=== PATIENT | female | born 1995 | race Caucasian/White ===

== ENCOUNTER 2018-05-25 12:45 | Emergency (ER) | payer OTHER ==
[~2018-05-25] VITALS: Ht 172.7 cm; Wt 88.0 kg
[~2018-05-25 12:45] MED LIST: AMOX50SU PO; CEPH250SUA PO; CETMENLOZ PO; DEXGUASY PO; DIPH12.5EL PO; FAMO20 PO; FERR325 PO; HYDHCL25 PO; IBUP400 PO; IBUP800 PO; Ibuprofen Ib200 MG PO; METF500 PO; NITR100CA PO; ONDA4 PO; ONDA4ODT MM; OSEL75CA PO; PENVK500 PO; PRED10 PO; PRED20 PO; PRED5 PO; TRAZ50 PO; Verotin-Gr Cap1 EACH PO
[2018-05-25] MEDS ORDERED: Microgestin1 EAC1 PO (13:11)
[2018-05-25 14:07] LABS: Influenza A Positive (NEGATIVE); Influenza B Negative (NEGATIVE)
== END 2018-05-25 14:32 | disposition home or self-care (01) ==
LOC: ER 12:45
PROVIDERS: Physician Assistant
DX: J10.1 Influenza due to other identified influenza virus with other respiratory manifestations (principal); Z79.899 Other long term (current) drug therapy
CPT/HCPCS: 87804; 99283

== ENCOUNTER 2020-11-27 08:20 | Day surgery (SDC) | payer OTHER ==
[~2020-11-27] VITALS: Ht 172.7 cm; Wt 110.0 kg
[~2020-11-27 08:20] MED LIST changes: +Microgestin1 EAC1 PO
--- NOTE | 2020-11-27 09:04 | NUR ---
11/27/20 0904 Uriah Pond CALL LIGHT WITHIN REACH
--- NOTE | 2020-11-27 10:43 | NUR ---
11/27/20 Hector2 Wanda Lopes PROCEDURE: RIGHT RADIUS, MIDSHAFT ORIF.
== END 2020-11-27 12:25 | disposition home or self-care (01) ==
LOC: ORSCSDS 08:20
PROVIDERS: Orthopaedic Surgery
PROC: 0PSH0ZZ Reposition Right Radius, Open Approach (ICD-10-PCS; principal; 2020-11-27 09:45)
DX: S52.301A Unspecified fracture of shaft of right radius, initial encounter for closed fracture (principal); J45.909 Unspecified asthma, uncomplicated; K21.9 Gastro-esophageal reflux disease without esophagitis; E66.9 Obesity, unspecified; Z68.36 Body mass index [BMI] 36.0-36.9, adult; Z79.899 Other long term (current) drug therapy
CPT/HCPCS: A9270; C1713; J0690; J1100; J1885; J2250; J2405; J2704; J3010; J7120

== ENCOUNTER 2022-05-10 09:43 | Emergency (ER) | payer OTHER ==
[~2022-05-10] VITALS: Ht 170.2 cm; Wt 99.8 kg
[2022-05-10 10:53] LABS: U Amphetamine Screen Not Detected; U Barbituate Screen Not Detected; U Benzodiazapine Screen Not Detected; U Buprenorphine Screen Not Detected; U Cannabinoids Screen DETECTED; U Cocaine Screen Not Detected; U Methadone Screen Not Detected; U Methamphetamine Screen Not Detected; U Opiates Screen Not Detected; U Oxycodone Screen Not Detected; U Phencyclidine Screen Not Detected; U Propoxyphene Screen Not Detected
[2022-05-10] MEDS ORDERED: ONDA4ODT MM (12:05)
== END 2022-05-10 12:05 | disposition home or self-care (01) ==
LOC: ER 09:43
PROVIDERS: Student in an Organized Health Care Education/Training Program
DX: E86.0 Dehydration (principal)
CPT/HCPCS: A9270; J1885; J7030

== ENCOUNTER → 2022-09-10 | Outpatient (CLI) | payer OTHER ==
[2022-09-10 11:24] LABS: BASOPHILS ABSOLUTE AUTO 0.04 K/mm3 (0.00-0.23); BASOPHILS PERCENT AUTO 1 % (0-2); EOSINOPHILS ABSOLUTE AUTO 0.14 K/mm3 (0.00-0.68); EOSINOPHILS PERCENT AUTO 2 % (0-6); Hematocrit 39.4 % (33.0-51.0); Hemoglobin 13.2 g/dL (11.5-16.0); IMMATURE GRAN ABSOLUTE AUTO 0.03 K/mm3 (0.00-0.10); IMMATURE GRAN PERCENT AUTO 0 % (0-1); LYMPHOCYTES PERCENT AUTO 23 % (21-46); MONOCYTES ABSOLUTE AUTO 0.45 K/mm3 (0.16-1.47); MONOCYTES PERCENT AUTO 5 % (4-13); Mean Corpuscular HGB 29.7 pg (26.0-34.0); Mean Corpuscular HGB Conc 33.5 g/dL (31.5-36.5); Mean Corpuscular Volume 89 fL (80-100); Mean Platelet Volume 9.6 fL (9.1-12.4); NEUTROPHILS ABSOLUTE AUTO 5.85 K/mm3 (1.96-9.15); NEUTROPHILS PERCENT AUTO 69 % (41-73); Platelet Count 346 K/mm3 (150-400); RDW Coefficient Variation 13.2 % (11.7-14.2); Red Blood Cell Count 4.44 M/mm3 (3.80-5.20); White Blood Cell Count 8.41 K/mm3 (4.00-11.30)
[2022-09-10 11:41] LABS: Bun/Creatinine Ratio 21.9 (12.0-20.0); Calcium, Blood 8.9 mg/dL (8.5-10.1); Creatinine, Blood 0.73 mg/dL (0.40-1.00); Potassium, Blood 3.9 mmol/L (3.5-5.5); Thyroid Stimulating Hormone 1.42 uIU/mL (0.360-4.800)
== END ==
LOC: LAB 11:12 → LAB SHORT 11:12
PROVIDERS: Physician Assistant Medical
DX: N93.9 Abnormal uterine and vaginal bleeding, unspecified (principal); Z83.49 Family history of other endocrine, nutritional and metabolic diseases
CPT/HCPCS: 80048; 84443; 84702; 85025

== ENCOUNTER 2022-12-25 11:47 | Day surgery (SDC) | payer OTHER ==
[~2022-12-25] VITALS: Ht 175.3 cm; Wt 106.2 kg
--- NOTE | 2022-12-25 12:38 | NUR ---
12/25/22 1238 MAYTE ALCANTARA CALL LIGHT IN PLACE, ALL QUESTIONS ASKED AND ANSWERED. PT READY FOR OR
[2022-12-25 14:32] VITALS: BP 135/84
--- NOTE | 2022-12-25 14:33 | NUR ---
12/25/22 1430 Maria Antonia Martinez PT WAS UP TO RESTROOM AND VOIDED.
== END 2022-12-25 14:52 | disposition home or self-care (01) ==
LOC: ORSCSDS 11:47
PROVIDERS: Obstetrics & Gynecology
PROC: 0UT74ZZ Resection of Bilateral Fallopian Tubes, Percutaneous Endoscopic Approach (ICD-10-PCS; principal; 2022-12-25 13:15)
DX: Z30.2 Encounter for sterilization (principal); E66.01 Morbid (severe) obesity due to excess calories; Z68.41 Body mass index [BMI] 40.0-44.9, adult; Z79.899 Other long term (current) drug therapy
CPT/HCPCS: 88302; A9270; J1100; J2250; J2405; J2704; J3010

== ENCOUNTER 2023-04-10 10:16 | Day surgery (SDC) | payer OTHER ==
[~2023-04-10] VITALS: Ht 175.3 cm; Wt 102.5 kg
[~2023-04-10 10:16] MED LIST changes: +Lactated Ringer's 1,000 ML IV ONE; +Norco 5-325 Ta1 EACH PO; +propofoL 50 ML IV ONE
[2023-04-10] MEDS ORDERED: ONDA4 (10:37)
[2023-04-10] MEDS ORDERED: Lactated Ringer's 1,000 ML IV ONE (10:45)
[2023-04-10] MEDS ORDERED: Midazolam HCL 1 MG/ML 5MLVIAL ONE (11:00)
[2023-04-10 12:28] VITALS: BP 141/91
== END 2023-04-10 12:04 | disposition home or self-care (01) ==
LOC: ORSCSDS 10:16
PROVIDERS: Specialist
PROC: 0DB68ZX Excision of Stomach, Via Natural or Artificial Opening Endoscopic, Diagnostic (ICD-10-PCS; principal; 2023-04-10 11:30)
PROC: 0DJD8ZZ Inspection of Lower Intestinal Tract, Via Natural or Artificial Opening Endoscopic (ICD-10-PCS; 2023-04-10 11:30)
DX: R10.84 Generalized abdominal pain (principal); Z87.19 Personal history of other diseases of the digestive system; K29.70 Gastritis, unspecified, without bleeding; K64.8 Other hemorrhoids; K21.9 Gastro-esophageal reflux disease without esophagitis; R93.3 Abnormal findings on diagnostic imaging of other parts of digestive tract; Z79.899 Other long term (current) drug therapy
CPT/HCPCS: 88305; 88342; J2250; J2704; J7120

== ENCOUNTER → 2024-03-18 | Outpatient (CLI) | payer OTHER ==
[~2024-03-18] MED LIST changes: -Lactated Ringer's 1,000 ML IV ONE; +ONDA4; -propofoL 50 ML IV ONE
== END ==
LOC: LAB 15:59 → LAB SHORT 15:59
PROVIDERS: Obstetrics & Gynecology
DX: Z01.419 Encounter for gynecological examination (general) (routine) without abnormal findings (principal)
CPT/HCPCS: G0123

== ENCOUNTER 2024-06-10 09:45 | Day surgery (SDC) | payer OTHER ==
[~2024-06-10] VITALS: Ht 172.7 cm; Wt 109.4 kg
[~2024-06-10 09:45] MED LIST changes: +AMOX500 PO; +METO10 PO
[2024-06-10] MEDS ORDERED: LevonorgestreL 1 EACH IUD VAG SCH (10:25)
[2024-06-10] MEDS ORDERED: Lactated Ringer's 1,000 ML IV ONE (10:34)
[2024-06-10] MEDS ORDERED: Midazolam HCl 1MG / ML 2ML Vial ONE (11:05)
[2024-06-10] MEDS ORDERED: propofoL 20 ML IV ONE (11:05)
[2024-06-10] MEDS ORDERED: Sugammadex Sodium 200 MG/2ML SDV (100 MG/ML) ONE (11:05)
[2024-06-10] MEDS ORDERED: FentaNYL Citrate 50 MCG/ML 2 ML Injection ONE (11:05)
[2024-06-10] MEDS ORDERED: Rocuronium Bromide 10 MG/ML 5ML Injection IV ONE (11:08)
[2024-06-10] MEDS ORDERED: Dexamethasone Sod Phos 10 MG/ML 1ML VIAL ONE (12:27)
[2024-06-10] MEDS ORDERED: Ondansetron HCl 2 MG / ML 2ML Vial ONE (12:27)
[2024-06-10] MEDS ORDERED: Bupivacaine 0.5% HCl 5 MG/ML 30MLVIAL INJ ONE (12:36)
--- NOTE | 2024-06-10 12:37 | NUR ---
06/10/24 1237 Laura Lemon RN PREPPED GUME AREA TO THIGHS, PHYLLIS CERRATO PREPPED ABDOMEN
--- NOTE | 2024-06-10 13:50 | NUR ---
06/10/24 1350 Kenya Bales PT PLACED ON BED HICKS IN PACU, PT REQUESTING TO GO TO BATHROOM
[2024-06-10 14:17] VITALS: BP 127/70
== END 2024-06-10 14:39 | disposition home or self-care (01) ==
LOC: ORSCSDS 09:45
PROVIDERS: Obstetrics & Gynecology
PROC: 0UH97HZ Insertion of Contraceptive Device into Uterus, Via Natural or Artificial Opening (ICD-10-PCS; principal; 2024-06-10 11:15)
PROC: 0UBF4ZX Excision of Cul-de-sac, Percutaneous Endoscopic Approach, Diagnostic (ICD-10-PCS; principal; 2024-06-10 11:15)
DX: N80.399 Endometriosis of the pelvic peritoneum, other specified sites, unspecified depth (principal); J45.909 Unspecified asthma, uncomplicated; K21.9 Gastro-esophageal reflux disease without esophagitis; E66.9 Obesity, unspecified; Z68.36 Body mass index [BMI] 36.0-36.9, adult
CPT/HCPCS: 88305; J1100; J2250; J2405; J2704; J3010; J7297

== ENCOUNTER 2024-09-05 05:53 | Day surgery (SDC) | payer OTHER ==
[~2024-09-05] VITALS: Ht 172.7 cm; Wt 110.8 kg
[2024-09-05] VITALS (13 sets, daily range): BP systolic 127–160; BP diastolic 67–93
[2024-09-05] MEDS ORDERED: FentaNYL Citrate 50 MCG/ML 5 ML Injection ONE (06:21)
[2024-09-05] MEDS ORDERED: Dexamethasone Sod Phos 10 MG/ML 1ML VIAL ONE (06:21)
[2024-09-05] MEDS ORDERED: Ondansetron HCl 2 MG / ML 2ML Vial ONE (06:21)
[2024-09-05] MEDS ORDERED: Rocuronium Bromide 10 MG/ML 5ML Injection IV ONE (06:21)
[2024-09-05] MEDS ORDERED: Ketorolac Tromethamine 30mg Vial ONE (06:21)
[2024-09-05] MEDS ORDERED: CeFAZolin Sodium 2,000 MG in NS 100 ML IV SCH (06:25)
--- NOTE | 2024-09-05 07:09 | NUR ---
History, Chart, Medications and Allergies reviewed before start of procedure. Pre-Op teaching done. Pt verbalizes understanding. Patient confirms NPO status and agrees with scheduled surgery. PARTNER, UMANG, AT BS. PT BELONINGS BAG X2 UNDER MARCE. PT UNABLE TO REMOVE BILATERAL NIPPLE RINGS AND R UPPER EARRING. DARIANA CONSENT COMPLETED.
[2024-09-05] MEDS ORDERED: Bupivacaine 0.25% Epi 1:200000 30 ML Vial ONE (07:17)
[2024-09-05] MEDS ORDERED: Sugammadex Sodium 200 MG/2ML SDV (100 MG/ML) ONE (09:05)
--- NOTE | 2024-09-05 09:54 | NUR ---
09/05/24 0954 Anya Lester EBL 50ML
[2024-09-05] MEDS ORDERED: Ipratropium/Albuterol SulF 2.5-0.5MG/3 ML Amp ONE (10:12)
[2024-09-05] MEDS ORDERED: HYDROmorphone HCl/Pf 1MG SYR IV PRN (10:45)
[2024-09-05] MEDS ORDERED: Ondansetron HCl 2 MG / ML 2ML Vial IV PRN (10:50)
[2024-09-05] MEDS ORDERED: Naloxone HCl 0.4MG / ML 1ML Vial IV PRN (10:50)
--- NOTE | 2024-09-05 10:50 | NUR ---
pt to room 229. lap sites x-4 to abdomen. minimal spotting on peripad. post op vs started. pt up to attempt void. denies pain or nausea. pt offerred water and snacks. will continue to monitor.
[2024-09-05] MEDS ORDERED: Ketorolac Tromethamine 30mg Vial IV SCH (12:00)
--- NOTE | 2024-09-05 23:58 | NUR ---
ASSUMPTION OF CARE S/P LAP HYSTR. VSS. PT ASLEEP c RISE/FALL OF CHEST. FAMILY @ BEDSIDE. CALL LIGHT IN REACH.
[2024-09-06 00:10] VITALS: BP 116/70
[2024-09-06 04:34] VITALS: BP 117/65
--- NOTE | 2024-09-06 06:43 | NUR ---
SHIFT SUMMARY POD 1 LAP HYSTR. NO ACUTE CHANGES OVERNIGHT. VSS. TOLERATING ORALS. LAP SITES x4 C/D/I. PT REPORTS PAIN TOLERABLE c ORAL MEDICATION, MEDICATED PER EMAR. VOIDING. PT REPORTS SCANT DRAINAGE ON GUME PADS. ANTICIPATED DISCHARGE TODAY. CALL LIGHT IN REACH, BED IN LOWEST POSITION, FAMILY AT BEDSIDE, REPORT GIVEN TO DAY RN.
[2024-09-06 06:47] LABS: BASOPHILS ABSOLUTE AUTO 0.02 K/mm3 (0.00-0.23); BASOPHILS PERCENT AUTO 0 % (0-2); EOSINOPHILS ABSOLUTE AUTO 0.22 K/mm3 (0.00-0.68); EOSINOPHILS PERCENT AUTO 2 % (0-6); Hematocrit 29.2 % (33.0-51.0); Hemoglobin 9.7 g/dL (11.5-16.0); IMMATURE GRAN ABSOLUTE AUTO 0.04 K/mm3 (0.00-0.10); IMMATURE GRAN PERCENT AUTO 0 % (0-1); LYMPHOCYTES ABSOLUTE AUTO 2.25 K/mm3 (0.84-5.20); LYMPHOCYTES PERCENT AUTO 21 % (21-46); MONOCYTES ABSOLUTE AUTO 0.76 K/mm3 (0.16-1.47); MONOCYTES PERCENT AUTO 7 % (4-13); Mean Corpuscular HGB Conc 33.2 g/dL (31.5-36.5); Mean Corpuscular Volume 89 fL (80-100); NEUTROPHILS ABSOLUTE AUTO 7.29 K/mm3 (1.96-9.15); NEUTROPHILS PERCENT AUTO 69 % (41-73); NRBC ABSOLUTE 0.00 K/mm3 (0.00-0.02); NRBC Auto 0.0 /100 WBC (0.0-0.2); Platelet Count 304 K/mm3 (150-400); RDW Coefficient Variation 13.3 % (11.7-14.2); RDW Standard Deviation 43.3 fL (35.1-46.3)
[2024-09-06 07:47] VITALS: BP 110/67
--- NOTE | 2024-09-06 08:13 | NUR ---
0757 DC INSTRUCT REVIEWED. STATED UNDERSTANDING. IV DCD INTACT. DC'D INTO SELF CARE WITH PRINTED INSTRUCT.
[2024-09-06] MEDS ORDERED: Enoxaparin 40 MG/0.4 ML SYR SC SCH (09:00)
[2024-09-06] MEDS ORDERED: Polyethylene Glycol 3350 17 gm PO SCH (09:00)
== END 2024-09-06 08:05 | disposition home or self-care (01) ==
LOC: ORSCMMR 05:53 → ORD 07:30 → SURS 10:47 → ORSCMMR 09-06 08:05 → SURS 09-06 08:05
PROVIDERS: Obstetrics & Gynecology
PROC: 0UT9FZZ Resection of Uterus, Via Natural or Artificial Opening With Percutaneous Endoscopic Assistance (ICD-10-PCS; principal; 2024-09-05 07:30)
PROC: 0U5F4ZZ Destruction of Cul-de-sac, Percutaneous Endoscopic Approach (ICD-10-PCS; principal; 2024-09-05 07:30)
DX: N80.9 Endometriosis, unspecified (principal); N80.03 Adenomyosis of the uterus; N94.6 Dysmenorrhea, unspecified; N80.34 Deep endometriosis of the pelvic sidewall; N73.6 Female pelvic peritoneal adhesions (postinfective); D36.0 Benign neoplasm of lymph nodes; E66.01 Morbid (severe) obesity due to excess calories; Z68.37 Body mass index [BMI] 37.0-37.9, adult; K21.9 Gastro-esophageal reflux disease without esophagitis
CPT/HCPCS: 36415; 85025; 86850; 86900; 86901; 88305; 88307; 94762; A9270; J0690; J1100; J1171; J1885; J2405; J2704; J3010; J7120

== ENCOUNTER → 2024-09-29 | Outpatient (CLI) | payer OTHER ==
[2024-09-29 20:39] LABS: Bacterial Vaginosis PCR Negative (NEGATIVE); Candida Group, PCR NOT DETECTED (NOT DETECT); Candida glabrata-krusei, PCR NOT DETECTED (NOT DETECT)
== END | disposition home or self-care (01) ==
LOC: LAB 18:13 → LAB SHORT 18:13
PROVIDERS: Obstetrics & Gynecology
DX: N89.8 Other specified noninflammatory disorders of vagina (principal)
CPT/HCPCS: 81515

== ENCOUNTER 2024-10-17 06:22 | Day surgery (SDC) | payer OTHER ==
[~2024-10-17] VITALS: Ht 172.7 cm; Wt 109.5 kg
[2024-10-17] VITALS (9 sets, daily range): BP systolic 138–158; BP diastolic 87–103
[2024-10-17] MEDS ORDERED: CeFAZolin Sodium 2,000 MG in NS 100 ML IV SCH (06:30)
[2024-10-17] MEDS ORDERED: ZYRTEC10 M2 PO (06:37)
--- NOTE | 2024-10-17 06:57 | NUR ---
Ambulatory in Day Surgery History, Chart, Medications and Allergies reviewed before start of procedure. Pre-Op teaching done. Pt verbalizes understanding. Patient States Post-Procedure ride home has been arranged.
[2024-10-17] MEDS ORDERED: Bupivacaine 0.5% HCl 5 MG/ML 30MLVIAL ONE (07:00)
[2024-10-17] MEDS ORDERED: Ondansetron HCl 2 MG / ML 2ML Vial ONE (07:06)
[2024-10-17] MEDS ORDERED: Dexamethasone Sod Phos 10 MG/ML 1ML VIAL ONE (07:06)
[2024-10-17] MEDS ORDERED: FentaNYL Citrate 50 MCG/ML 2 ML Injection ONE (07:09)
[2024-10-17] MEDS ORDERED: Albuterol 2.5 MG/3 ML VIAL INH PRN (07:10)
[2024-10-17] MEDS ORDERED: HYDROmorphone HCl/Pf 1MG SYR IV PRN (07:10)
[2024-10-17] MEDS ORDERED: Midazolam HCl 1MG / ML 2ML Vial IV PRN (07:10)
[2024-10-17] MEDS ORDERED: Ondansetron HCl 2 MG / ML 2ML Vial IV PRN (07:10)
[2024-10-17] MEDS ORDERED: FentaNYL Citrate 50 MCG/ML 2 ML Injection IV PRN ×2 (07:15)
[2024-10-17] MEDS ORDERED: Ketorolac Tromethamine 30mg Vial ONE (07:40)
[2024-10-17] MEDS ORDERED: OxyCODONE 5 mg/Acetamin 325 mg TABLET PO PRN (08:20)
--- NOTE | 2024-10-17 09:10 | NUR ---
Patient up to Ambulate independently. Gait steady. Discharge instructions reviewed with patient. Patient verbalizes understanding. Copy given to patient to take home. Patient States Post-Procedure ride home has been arranged. Discharged via wheelchair to private car for ride home. PT TOLERATING PO, REPORTS READY TO GO HOME.ICE PACK AND SCRIPT SENT WITH PT.
== END 2024-10-17 09:10 | disposition home or self-care (01) ==
LOC: ORSCMMR 06:22 → ORD 07:30 → ORSCMMR 09:10
PROVIDERS: Surgery
PROC: 0JB80ZX Excision of Abdomen Subcutaneous Tissue and Fascia, Open Approach, Diagnostic (ICD-10-PCS; principal; 2024-10-17 07:30)
DX: D17.1 Benign lipomatous neoplasm of skin and subcutaneous tissue of trunk (principal); G47.33 Obstructive sleep apnea (adult) (pediatric); K21.9 Gastro-esophageal reflux disease without esophagitis; E66.9 Obesity, unspecified; Z68.36 Body mass index [BMI] 36.0-36.9, adult; M41.9 Scoliosis, unspecified; Z79.899 Other long term (current) drug therapy
CPT/HCPCS: 88304; A9270; J0690; J1100; J1885; J2405; J2704; J3010; J7120